=== PATIENT | male | born 1980 | race Caucasian/White ===

== ENCOUNTER 2017-06-04 10:28 | Emergency (ER) | payer OTHER ==
[2017-06-04] MEDS ORDERED: SODIUM CHLORIDE 0.9% 1,000 ML IV ONE (10:45)
[2017-06-04 11:36] VITALS: BP 138/90
== END 2017-06-04 11:59 | disposition home or self-care (01) ==
LOC: EMS 10:28
DX: R51 Headache (principal)
CPT/HCPCS: 99284

== ENCOUNTER 2018-01-12 00:54 | Emergency (ER) | payer SELFPAY ==
[~2018-01-12] VITALS: Ht 167.6 cm; Wt 76.4 kg
[2018-01-12] MEDS ORDERED: MORPHINE SULFATE 4 MG/ML SYRINGE IM ONE (02:15)
[2018-01-12] MEDS ORDERED: ONDANSETRON HCL 4 MG/2 ML VIAL IM ONE (02:15)
[2018-01-12 05:00] VITALS: BP 144/90
== END 2018-01-12 05:31 | disposition home or self-care (01) ==
LOC: EMS 00:55
DX: S16.1XXA Strain of muscle, fascia and tendon at neck level, initial encounter (principal); V49.59XA Passenger injured in collision with other motor vehicles in traffic accident, initial encounter; Y93.89 Activity, other specified; Y92.89 Other specified places as the place of occurrence of the external cause; Y99.8 Other external cause status
CPT/HCPCS: 70450; 72125; 96372; 99284; J2270; J2405

== ENCOUNTER 2019-11-28 04:47 | Inpatient (IN) | payer MEDICAID, OTHER ==
[~2019-11-28] VITALS: Ht 167.6 cm; Wt 75.0 kg
[2019-11-28 05:29] LABS: BASOPHILS % (AUTO) 0.4 % (0.0-2.0); EOSINOPHILS % (AUTO) 0.6 % (1.0-6.0); HEMATOCRIT 46.4 % (41-53); HEMOGLOBIN 15.9 g/dL (13.5-17.5); LYMPHOCYTES # (AUTO) 1.7 K/uL (1.0-4.8); LYMPHOCYTES % (AUTO) 15.5 % (22.0-44.0); MEAN CORPUSCULAR HEMOGLOBIN 29.5 pg (26.0-34.0); MEAN CORPUSCULAR HGB CONC 34.2 G/dL (31.0-37.0); MEAN CORPUSCULAR VOLUME 86 fL (80-100); MONOCYTES # (AUTO) 0.6 K/uL (0.1-1.0); MONOCYTES % (AUTO) 5.5 % (2.0-9.0); NEUTROPHILS # (AUTO) 8.4 K/uL (1.8-7.7); PLATELET COUNT (AUTO) 291 K/uL (150-450); RED BLOOD CELL COUNT(AUTO) 5.39 MIL/uL (4.50-5.90); RED CELL DISTRIBUTION WIDTH 12.6 % (11.5-14.5)
[2019-11-28] MEDS ORDERED: SODIUM CHLORIDE 0.9% 1,000 ML IV ONE (05:30)
[2019-11-28] MEDS ORDERED: ONDANSETRON HCL 4 MG/2 ML VIAL IVP ONE (05:30)
[2019-11-28 05:44] LABS: ANION GAP 12 mmol/L (8-16); CALCIUM, TOTAL 8.7 mg/dL (8.8-10.5); CARBON DIOXIDE 27 mmol/L (22-29); CHLORIDE 99 mmol/L (98-107); GLOMERULAR FILTR. RATE CALC > 60 mL/min (>60); GLUCOSE,RANDOM 294 mg/dL (70-110); POTASSIUM 4.3 mmol/L (3.5-5.1); SODIUM SERUM 138 mmol/L (136-145); UREA NITROGEN, BLOOD 11 mg/dL (7-18)
[2019-11-28] MEDS ORDERED: NITROGLYCERIN 0.4 MG SUBLINGUAL TABLET #25 SL ONE ×2 (05:45→06:30)
[2019-11-28] MEDS ORDERED: ASPIRIN 325 MG TABLET PO ONE (05:45)
[2019-11-28 05:50] LABS: ALANINE AMINOTRANSFERASE 32 U/L (12-78); ALBUMIN 3.7 g/dL (3.4-5.0); ALKALINE PHOSPHATASE 105 U/L (46-116); ASPARTATE AMINOTRANSFERASE 14 U/L (15-37); BILIRUBIN,TOTAL 0.6 mg/dL (0.1-1.0); CREATINE KINASE, TOTAL ONLY 29 U/L (39-308); TOTAL PROTEIN, SERUM 7.8 g/dL (6.4-8.2)
[2019-11-28] MEDS ORDERED: ONDANSETRON HCL 4 MG/2 ML VIAL IVP PRN ×2 (06:15→18:15)
[2019-11-28] MEDS ORDERED: 0.9% SODIUM CHLORIDE 10 ML SYRINGE IVP PRN (06:15)
[2019-11-28] MEDS ORDERED: ACETAMINOPHEN 325 MG TABLET PO PRN ×2 (06:15→07:15)
[2019-11-28] MEDS ORDERED: OxyCODONE HCL/ACETAMINOPHEN 5-325 MG TABLET PO PRN (07:15)
[2019-11-28] MEDS ORDERED: DEXTROSE 50%-WATER 25 GM/50 ML SYRINGE IVP PRN (07:15)
[2019-11-28] MEDS ORDERED: MAGNESIUM HYDROXIDE SUSPENSION 30 ML UDCUP PO PRN (07:15)
[2019-11-28] MEDS ORDERED: MORPHINE SULFATE 2 MG/ML SYRINGE IVP PRN (07:15)
[2019-11-28 07:55] VITALS: BP 126/62
[2019-11-28 08:21] VITALS: BP 126/62
[2019-11-28] MEDS: FAMOTIDINE 20 MG TABLET PO SCH ×2 (09:31→20:19)
[2019-11-28 11:32] VITALS: BP 144/84
[2019-11-28 16:57] LABS: AMPHET/METH SCREEN,URINE POSITIVE (NEGATIVE); BARBITURATE SCREEN, URINE NEGATIVE (NEGATIVE); BENZODIAZEPINES SCREEN,URINE NEGATIVE (NEGATIVE); CANNABINOID SCREEN,URINE NEGATIVE (NEGATIVE); COCAINE SCREEN,URINE NEGATIVE (NEGATIVE); METHADONE SCREEN, URINE NEGATIVE (NEGATIVE); OPIATE SCREEN,URINE POSITIVE (NEGATIVE); PHENCYCLIDINE SCREEN,URINE NEGATIVE (NEGATIVE)
[2019-11-28] MEDS: INSULIN LISPRO 100 UNITS/ML SQ PRN ×2 (18:14→21:34)
[2019-11-28 18:59] LABS: GLUCOMETER DEV NAME(LOC) 5N.1; GLUCOSE,POINT OF CARE 202 MG/DL (70-110)
[2019-11-28 19:00] LABS: GLUCOMETER DEV NAME(LOC) 5S.1; GLUCOSE,POINT OF CARE 265 MG/DL (70-110)
[2019-11-28 19:19] VITALS: BP 151/89
[2019-11-28] MEDS: NICOTINE 21 MG/24 HOUR PATCH TD SCH (20:19)
[2019-11-28 23:24] VITALS: BP 154/85
[2019-11-29 03:40] VITALS: BP 152/97
[2019-11-29 05:20] LABS: GLUCOMETER DEV NAME(LOC) 5N.1; GLUCOSE,POINT OF CARE 217 MG/DL (70-110)
[2019-11-29] MEDS: INSULIN LISPRO 100 UNITS/ML SQ PRN ×2 (06:02→13:22)
[2019-11-29 06:46] LABS: GLUCOMETER DEV NAME(LOC) 5S.1; GLUCOSE,POINT OF CARE 223 MG/DL (70-110)
[2019-11-29 08:00] VITALS: BP 147/92
[2019-11-29] MEDS ORDERED: MetFORMIN HCL 500 MG TABLET PO SCH (08:00)
[2019-11-29] MEDS: FAMOTIDINE 20 MG TABLET PO SCH (08:26)
[2019-11-29] MEDS: NICOTINE 21 MG/24 HOUR PATCH TD SCH (08:26)
[2019-11-29 12:15] VITALS: BP 154/97
[2019-11-29] MEDS ORDERED: METF-960 PO (12:55)
[2019-11-29] MEDS ORDERED: BLOO-140 (12:59)
[2019-11-29] MEDS ORDERED: LANC-962 TP (13:00)
[2019-11-30 03:40] LABS: GLUCOMETER DEV NAME(LOC) 5S.1; GLUCOSE,POINT OF CARE 230 MG/DL (70-110)
== END 2019-11-29 13:30 | disposition home or self-care (01) | DRG 812 ==
LOC: EMS 04:48 → 5N 06:20
PROVIDERS: ADMIT Internal Medicine; ATTEND Internal Medicine
DX: T43.621A Poisoning by amphetamines, accidental (unintentional), initial encounter (principal); I24.8 Other forms of acute ischemic heart disease; E11.65 Type 2 diabetes mellitus with hyperglycemia; I10 Essential (primary) hypertension; F15.90 Other stimulant use, unspecified, uncomplicated; Z72.89 Other problems related to lifestyle
CPT/HCPCS: 83036; 83735; 93005; 93306; 96374; J2405